=== PATIENT | female | born 1975 | race Caucasian/White ===

== ENCOUNTER 2020-12-31 10:20 | Emergency (ER) | payer SELFPAY ==
[~2020-12-31] VITALS: Ht 166 cm; Wt 64.5 kg
--- NOTE | 2020-12-31 10:53 | ED General ---
General Chief Complaint: Suicidal Ideation Risk Stated Complaint: SUICIDAL IDEATION Source of Information: Patient History of Present Illness Date Seen by Provider: December 31, 2020 Time Seen by Provider: 10:40 Initial Comments Patient is a 45-year-old female who presents with suicidal ideation. Patient states she is going through a contentious divorce that she is in the process of being served. She states last night she went to a hotel room with the intent of drinking 1/2 gallon of whiskey and overdosing on prescription muscle relaxants. Patient drink the alcohol but did not take the muscle relaxants out of fear of leaving her children alone. She states she has been suicidal for several months. She denies hallucinations delusions paranoia and homicidal ideation. She denies mental symptoms or complaints at this time. She is currently on her menstrual period. Timing/Duration: Other Severity: Moderate Associated Systoms: Other Allergies and Home Medications Allergies Coded Allergies: latex (Verified Allergy, Unknown, 12/31/20) Patient Home Medication List Home Medication List Reviewed: Yes Review of Systems Review of Systems Constitutional: see HPI EENTM: see HPI Respiratory: see HPI Cardiovascular: see HPI Gastrointestinal: see HPI Genitourinary: see HPI Musculoskeletal: see HPI Skin: see HPI Psychiatric/Neurological: See HPI Immunological/Allergic: see HPI All Other Systems Reviewed Negative Unless Noted: Yes Past Jnrjyrp-Itgkoo-Jpvrsc Hx Past Med/Social Hx: Reviewed Nursing Past Med/Soc Hx Patient Social History Alcohol Use: Occasionally Uses Smoking Status: Never a Smoker 2nd Hand Smoke Exposure: No Recent Hopitalizations: No Seasonal Allergies Seasonal Allergies: No Past Medical History Surgeries: Yes (Breast Augmentation) Breast Respiratory: No Cardiac: No Neurological: No Genitourinary: No Gastrointestinal: No Musculoskeletal: No Endocrine: No HEENT: No Cancer: No Psychosocial: No Nursing Suicide Risk Notes: Patient presents to the ED with c/o of sucidal ideation. The patient contacted [facility] crisis line. Michele from mental health reported that the patient had a plan to overdose last night. The patient stated she was going to take her son's bottle of flexeril and drink vodka. When asked what kept her from going through with it she stated, "I didn't want to leave my children with their father; He's a monster and a psychopath." Patient is currently going through a divorce and struggling with child custody issues. Integumentary: No Blood Disorders: No Physical Exam Vital Signs Vital Signs - First Documented 12/31/20 10:25 Temp 36.7 Pulse 97 Resp 16 B/P (MAP) 141/66 (91) Pulse Ox 100 O2 Delivery Room Air Capillary Refill : Height, Weight, BMI Height: '" Weight: lbs. oz. kg; BMI Method: General Appearance: Anxious Eyes: Bilateral Eye Normal Inspection, Bilateral Eye PERRL, Bilateral Eye EOMI HEENT: PERRL/EOMI, Normal ENT Inspection, Pharynx Normal Neck: Full Range of Motion, Non Tender, Supple Respiratory: Lungs Clear, Normal Breath Sounds Cardiovascular: Regular Rate, Rhythm Gastrointestinal: Soft Neurologic/Psychiatric: Alert, Oriented x3, Normal Mood/Affect Progress/Results/Core Measures Suspected Sepsis SIRS Temperature: Pulse: Respiratory Rate: Laboratory Tests 12/31/20 10:56: White Blood Count 11.4H Blood Pressure / Mean: Laboratory Tests 12/31/20 10:56: Creatinine 0.83, Platelet Count 363, Total Bilirubin 0.5 Results/Orders Lab Results Laboratory Tests Test 12/31/20 10:30 12/31/20 10:56 12/31/20 13:07 Range/Units Urine Opiates Screen NEGATIVE NEGATIVE Urine Oxycodone Screen NEGATIVE NEGATIVE Urine Methadone Screen NEGATIVE NEGATIVE Urine Propoxyphene Screen NEGATIVE NEGATIVE Urine Barbiturates Screen NEGATIVE NEGATIVE Ur Tricyclic Antidepressants Screen NEGATIVE NEGATIVE Urine Phencyclidine Screen NEGATIVE NEGATIVE Urine Amphetamines Screen NEGATIVE NEGATIVE Urine Methamphetamines Screen NEGATIVE NEGATIVE Urine Benzodiazepines Screen NEGATIVE NEGATIVE Urine Cocaine Screen NEGATIVE NEGATIVE Urine Cannabinoids Screen NEGATIVE NEGATIVE White Blood Count 11.4 H 4.3-11.0 10^3/uL Red Blood Count 4.64 4.35-5.85 10^6/uL Hemoglobin 13.9 11.5-16.0 G/DL Hematocrit 42 35-52 % Mean Corpuscular Volume 90 80-99 FL Mean Corpuscular Hemoglobin 30 25-34 PG Mean Corpuscular Hemoglobin Concent 33 32-36 G/DL Red Cell Distribution Width 12.5 10.0-14.5 % Platelet Count 363 130-400 10^3/uL Mean Platelet Volume 9.8 7.4-10.4 FL Immature Granulocyte % (Auto) 0 % Neutrophils (%) (Auto) 76 H 42-75 % Lymphocytes (%) (Auto) 16 12-44 % Monocytes (%) (Auto) 6 0-12 % Eosinophils (%) (Auto) 1 0-10 % Basophils (%) (Auto) 0 0-10 % Neutrophils # (Auto) 8.7 H 1.8-7.8 X 10^3 Lymphocytes # (Auto) 1.9 1.0-4.0 X 10^3 Monocytes # (Auto) 0.7 0.0-1.0 X 10^3 Eosinophils # (Auto) 0.1 0.0-0.3 10^3/uL Basophils # (Auto) 0.0 0.0-0.1 10^3/uL Immature Granulocyte # (Auto) 0.0 0.0-0.1 10^3/uL Percent Immature Platelet Fraction 2.6 0.0-7.6 % Sodium Level 143 135-145 MMOL/L Potassium Level 3.9 3.6-5.0 MMOL/L Chloride Level 106 98-107 MMOL/L Carbon Dioxide Level 24 21-32 MMOL/L Anion Gap 13 5-14 MMOL/L Blood Urea Nitrogen 13 7-18 MG/DL Creatinine 0.83 0.60-1.30 MG/DL Estimat Glomerular Filtration Rate > 60 BUN/Creatinine Ratio 16 Glucose Level 121 H 70-105 MG/DL Calcium Level 9.7 8.5-10.1 MG/DL Corrected Calcium 9.5 8.5-10.1 MG/DL Total Bilirubin 0.5 0.1-1.0 MG/DL Aspartate Amino Transf (AST/SGOT) 16 5-34 U/L Alanine Aminotransferase (ALT/SGPT) 19 0-55 U/L Alkaline Phosphatase 46 40-136 U/L Total Protein 6.7 6.4-8.2 GM/DL Albumin 4.3 3.2-4.5 GM/DL Serum Alcohol < 10 <10 MG/DL SARS-CoV-2 RNA (RT-PCR) Not Detected Not Detecte My Orders Julien - NED DARBY DO Cbc With Automated Diff (12/31/20 10:44) Comprehensive Metabolic Panel (12/31/20 10:44) Alcohol (12/31/20 10:44) Drug Screen Stat (Urine) (12/31/20 10:44) Ekg-Prn For Chest Pain Or Rhyt (12/31/20 10:44) Urine Bedside (12/31/20 10:45) Covid 19 Inhouse Test (12/31/20 12:38) Vital Signs/I&O 12/31/20 12/31/20 10:25 19:03 Temp 36.7 36.5 Pulse 97 87 Resp 16 16 B/P (MAP) 141/66 (91) 140/65 (91) Pulse Ox 100 100 O2 Delivery Room Air Capillary Refill : Departure Communication (Admissions) She is medically cleared and screened. She will require admission to psychiatric hospital for treatment of acute mood disorder and substance abuse. Impression Primary Impression: Mood disorder Additional Impression: Substance abuse Disposition: XFER SHT-TRM HOSP Condition: Stable Departure-Patient Inst. Referrals: NO,LOCAL PHYSICIAN (PCP/Family) Primary Care Physician Patient Instructions: OUTPT MENTAL HEALTH SERVICES NED DARBY DO December 31, 2020 10:52
[2020-12-31 11:03] LABS: AMPHETAMINE SCREEN, URINE NEGATIVE (NEGATIVE); BARBITURATE SCREEN URINE NEGATIVE (NEGATIVE); BENZODIAZEPINES SCREEN URINE NEGATIVE (NEGATIVE); CANNABINOID SCREEN, URINE NEGATIVE (NEGATIVE); COCAINE SCREEN URINE NEGATIVE (NEGATIVE); METHADONE STAT NEGATIVE (NEGATIVE); METHAMPHETAMINE SCREEN URINE S NEGATIVE (NEGATIVE); OPIATE SCREEN URINE NEGATIVE (NEGATIVE); OXYCODONE STAT NEGATIVE (NEGATIVE); PROPOXYPHENE STAT NEGATIVE (NEGATIVE); TRICYCLIC ANTIDEPRESSANTS SCRE NEGATIVE (NEGATIVE)
[2020-12-31 11:16] LABS: BASOPHILS % (AUTO) 0 % (0-10); EOSINOPHILS % (AUTO) 1 % (0-10); HEMATOCRIT 42 % (35-52); HEMOGLOBIN 13.9 G/DL (11.5-16.0); LYMPHOCYTES % (AUTO) 16 % (12-44); MEAN CORPUSCULAR HEMOGLOBIN 30 PG (25-34); MEAN CORPUSCULAR HGB CONC 33 G/DL (32-36); MEAN CORPUSCULAR VOLUME 90 FL (80-99); MEAN PLATELET VOLUME 9.8 FL (7.4-10.4); MONOCYTES % (AUTO) 6 % (0-12); NEUTROPHILS # (AUTO) 8.7 X 10^3 (1.8-7.8); NEUTROPHILS % (AUTO) 76 % (42-75); PLATELET COUNT 363 10^3/uL (130-400); WHITE BLOOD COUNT 11.4 10^3/uL (4.3-11.0)
[2020-12-31 11:17] LABS: EOSINOPHILS # (AUTO) 0.1 10^3/uL (0.0-0.3); LYMPHOCYTES # (AUTO) 1.9 X 10^3 (1.0-4.0); MONOCYTES # (AUTO) 0.7 X 10^3 (0.0-1.0)
[2020-12-31 11:37] LABS: BUN/CREATININE RATIO 16; CARBON DIOXIDE 24 MMOL/L (21-32); CHLORIDE 106 MMOL/L (98-107); CREATININE SERUM 0.83 MG/DL (0.60-1.30); GFR ESTIMATED > 60; GLUCOSE 121 MG/DL (70-105); POTASSIUM 3.9 MMOL/L (3.6-5.0); SODIUM 143 MMOL/L (135-145)
[2020-12-31 11:38] LABS: ALANINE AMINOTRANSFERASE 19 U/L (0-55); ALBUMIN 4.3 GM/DL (3.2-4.5); ALKALINE PHOSPHATASE 46 U/L (40-136); BILIRUBIN,TOTAL 0.5 MG/DL (0.1-1.0); CALCIUM 9.7 MG/DL (8.5-10.1); TOTAL PROTEIN 6.7 GM/DL (6.4-8.2)
[2020-12-31 19:03] VITALS: BP 140/65
== END 2020-12-31 19:03 ==
LOC: EDUNIT# 10:20 → ER FS 10:23
DX: F39 Unspecified mood [affective] disorder (principal); F19.10 Other psychoactive substance abuse, uncomplicated; Z91.040 Latex allergy status; Z20.822 Contact with and (suspected) exposure to COVID-19
CPT/HCPCS: 36415; 80053; 80306; 85025; 87636; 99284; G0480; 80320

== ENCOUNTER 2022-09-13 20:26 | Observation (INO) | payer MEDICAID ==
[~2022-09-13] VITALS: Ht 165.1 cm; Wt 73.0 kg
[2022-09-13] MEDS ORDERED: HEParin 1000 UNIT/ML (10ML VIAL) FOR BOLUS ONE ×2 (20:44→20:57)
--- NOTE | 2022-09-13 20:46 | ED Chest Pain ---
General Stated Complaint: STEMI Source: patient Exam Limitations: no limitations History of Present Illness Date Seen by Provider: Sep 13, 2022 Time Seen by Provider: 20:28 Initial Comments Patient is a 47-year-old female negative past medical history taking an aisl-wni-izrjnkq supplemental thyroid medication who presents to the emergency room from [facility] ambulance with chief complaint substernal chest pressure and pain radiating into her neck and bilateral upper extremities to the elbows. She is nauseous and a little short of breath. No diaphoresis. EMS called STEMI on their way in. Blood pressure initially 140s, not hypoxic. Patient denies any recent illnesses. She did have some chest pain a couple weeks ago but it went a way. Family history pertinent for grandfather with heart disease. She has no known hypertension hypercholesterolemia or diabetes. She is a non-smoker. Nondrinker. No street drugs. Currently rating her pain at a 5 at its worst at presentation it was a "9". Initial EKG at presentation shows normal sinus rhythm with small Q waves inferiorly a hint of ST elevation in lead III and aVF. This is compared to the EMS twelve-lead which did show distinct elevation in 2 3 and aVF with reciprocal changes in 1 and aVL also some ST elevation noted in leads V4 5 and six 1 mm. Shortly after I left the room the patient started complaining of "feeling funny, second EKG obtained and shows a junctional tachycardia at [address] segment elevation Timing/Duration: 1/2 hour Severity/Quality: severe, aching Location: substernal Radiation: jaw, arms Activities at Onset: other (in [facility]) Prior CP/Workup: no prior chest pain, no prior cardiac workup Modifying Factors: improves with nitroglycerin (x1 per EMS) ASA po MEDICAL RECORDS CLERK: Yes NTG SL MEDICAL RECORDS CLERK: Yes Associated Symptoms: nausea/vomiting; No shortness of breath Allergies and Home Medications Allergies Coded Allergies: latex (Verified Allergy, Unknown, 12/31/20) levofloxacin (Verified Allergy, Unknown, 09/13/22) Patient Home Medication List Home Medication List Reviewed: Yes Aspirin (Aspirin EC) 81 Mg Tablet.dr, 81 MG PO DAILY Prescribed by: YANDY OLSEN on 09/14/22 162 Atorvastatin Calcium (Lipitor) 10 Mg Tablet, 10 MG PO DAILY Prescribed by: YANDY OLSEN on 09/14/22 1624 [Thyromin Yng Lving] , 1 EA PO BID, (Reported) Entered as Reported by: JOSIAS SAAVEDRA on 09/14/22 1043 Last Action: Reviewed Review of Systems Review of Systems Constitutional: see HPI EENTM: No Symptoms Reported Respiratory: Shortness of Air Cardiovascular: Chest Pain Gastrointestinal: Nausea Genitourinary: No Symptoms Reported Musculoskeletal: no symptoms reported Skin: no symptoms reported Past Ftfxgpt-Rnruak-Gsxufk Hx Seasonal Allergies Seasonal Allergies: No Past Medical History Surgeries: Yes (Breast Augmentation) Breast Respiratory: No Cardiac: No Neurological: No Genitourinary: No Gastrointestinal: No Musculoskeletal: No Endocrine: No HEENT: No Cancer: No Psychosocial: No Integumentary: No Blood Disorders: No Physical Exam Vital Signs Vital Signs - First Documented 09/13/22 20:28 Temp 36.3 Pulse 92 Resp 22 B/P (MAP) 142/82 (102) Pulse Ox 97 O2 Delivery Room Air Capillary Refill : Height, Weight, BMI Height: '" Weight: lbs. oz. kg; 23.00 BMI Method: General Appearance: No Apparent Distress, WD/WN HEENT: PERRL/EOMI Neck: Normal Inspection Respiratory: Lungs Clear, Normal Breath Sounds, No Accessory Muscle Use, No Respiratory Distress Cardiovascular: Regular Rate, Rhythm, Normal Peripheral Pulses Gastrointestinal: Normal Bowel Sounds, Non Tender, Soft Extremity: Normal Capillary Refill, Normal Inspection, Normal Range of Motion, Non Tender, No Calf Tenderness, No Pedal Edema Neurologic/Psychiatric: Alert, Oriented x3, No Motor/Sensory Deficits, Normal Mood/Affect Skin: Normal Color, Warm/Dry Progress/Results/Core Measures Results/Orders Lab Results Laboratory Tests Test 09/13/22 20:35 Range/Units White Blood Count 12.0 H 4.3-11.0 10^3/uL Red Blood Count 4.40 3.80-5.11 10^6/uL Hemoglobin 13.1 11.5-16.0 g/dL Hematocrit 39 35-52 % Mean Corpuscular Volume 88 80-99 fL Mean Corpuscular Hemoglobin 30 25-34 pg Mean Corpuscular Hemoglobin Concent 34 32-36 g/dL Red Cell Distribution Width 12.3 10.0-14.5 % Platelet Count 368 130-400 10^3/uL Mean Platelet Volume 9.7 9.0-12.2 fL Immature Granulocyte % (Auto) 0 % Neutrophils (%) (Auto) 54 42-75 % Lymphocytes (%) (Auto) 38 12-44 % Monocytes (%) (Auto) 6 0-12 % Eosinophils (%) (Auto) 2 0-10 % Basophils (%) (Auto) 0 0-10 % Neutrophils # (Auto) 6.5 1.8-7.8 10^3/uL Lymphocytes # (Auto) 4.5 H 1.0-4.0 10^3/uL Monocytes # (Auto) 0.7 0.0-1.0 10^3/uL Eosinophils # (Auto) 0.2 0.0-0.3 10^3/uL Basophils # (Auto) 0.0 0.0-0.1 10^3/uL Immature Granulocyte # (Auto) 0.0 0.0-0.1 10^3/uL Prothrombin Time 12.6 12.2-14.7 SEC INR Comment 0.9 0.8-1.4 Activated Partial Thromboplast Time 26 24-35 SEC Sodium Level 141 135-145 MMOL/L Potassium Level 3.4 L 3.6-5.0 MMOL/L Chloride Level 106 98-107 MMOL/L Carbon Dioxide Level 21 21-32 MMOL/L Anion Gap 14 5-14 MMOL/L Blood Urea Nitrogen 17 7-18 MG/DL Creatinine 0.91 0.60-1.30 MG/DL Estimat Glomerular Filtration Rate 78 BUN/Creatinine Ratio 19 Glucose Level 130 H 70-105 MG/DL Calcium Level 9.6 8.5-10.1 MG/DL Corrected Calcium 9.4 8.5-10.1 MG/DL Magnesium Level 2.1 1.6-2.4 MG/DL Total Bilirubin 0.3 0.1-1.0 MG/DL Aspartate Amino Transf (AST/SGOT) 46 H 5-34 U/L Alanine Aminotransferase (ALT/SGPT) 77 H 0-55 U/L Alkaline Phosphatase 64 40-136 U/L Myoglobin 29.2 10.0-92.0 NG/ML Troponin I < 0.028 <0.028 NG/ML Total Protein 7.0 6.4-8.2 GM/DL Albumin 4.3 3.2-4.5 GM/DL My Orders Orders - PAT FERNANDEZ MD Cbc With Automated Diff (09/13/22 20:38) Magnesium (09/13/22 20:38) Chest 1 View, Ap/Pa Only (09/13/22 20:38) Ekg Tracing (09/13/22 20:38) Comprehensive Metabolic Panel (09/13/22 20:38) Myoglobin Serum (09/13/22 20:38) Protime With Inr (09/13/22 20:38) Partial Thromboplastin Time (09/13/22 20:38) O2 (09/13/22 20:38) Monitor-Rhythm Ecg Trace Only (09/13/22 20:38) Ed Iv/Invasive Line Start (09/13/22 20:38) Troponin I Charles (09/13/22 20:38) Heparin (Bolus Per Protocol) (Heparin (B (09/13/22 20:44) Vital Signs/I&O 09/13/22 20:28 Temp 36.3 Pulse 92 Resp 22 B/P (MAP) 142/82 (102) Pulse Ox 97 O2 Delivery Room Air Progress Progress Note : Time: 20:44 Progress Note Discussed with Dr Olsen, activate clinical lab assistant 0 5000u Heparin Initial ECG Impression Date: Sep 13, 2022 Initial ECG Impression Time: 20:34 Initial ECG Rate: 92 Initial ECG Rhythm: Normal Sinus Initial ECG Intervals AL 150 QRS [address] elevation 1mm inferior leads; depression aVL 1mm; no ectopy EKG : EKG Time: 20:38 Rate: 101 ECG Comparisson: Changed Comment junctional tachycardia with QRS 111; QTc 519 Departure Communication (Admissions) Time/Spoke to Admitting Phy: 20:[address] Olsen Impression Primary Impression: STEMI (ST elevation myocardial infarction) Qualified Codes: I21.3 - ST elevation (STEMI) myocardial infarction of unspecified site Disposition: ADMITTED INPATIENT Condition: Critical Admissions Decision to Admit Reason: Admit from ER (General) Decision to Admit/Date: Sep 13, 2022 Time/Decision to Admit Time: 20:46 Departure-Patient Inst. Referrals: NO,LOCAL PHYSICIAN (PCP/Family) Primary Care Physician Scripts Atorvastatin Calcium (Lipitor) 10 Mg Tablet 10 MG PO DAILY, #30 TAB 3 Refills Prov: YANDY OLSEN MD 09/14/22 Aspirin (Aspirin EC) 81 Mg Tablet. 81 MG PO DAILY, #100 TAB 4 Refills Prov: YANDY OLSEN MD 09/14/22 PAT FERNANDEZ MD Sep 13, 2022 20:46
[2022-09-13 20:50] LABS: BASOPHILS % (AUTO) 0 % (0-10); EOSINOPHILS # (AUTO) 0.2 10^3/uL (0.0-0.3); EOSINOPHILS % (AUTO) 2 % (0-10); HEMATOCRIT 39 % (35-52); HEMOGLOBIN 13.1 g/dL (11.5-16.0); LYMPHOCYTES # (AUTO) 4.5 10^3/uL (1.0-4.0); LYMPHOCYTES % (AUTO) 38 % (12-44); MEAN CORPUSCULAR HEMOGLOBIN 30 pg (25-34); MEAN CORPUSCULAR HGB CONC 34 g/dL (32-36); MEAN CORPUSCULAR VOLUME 88 fL (80-99); MEAN PLATELET VOLUME 9.7 fL (9.0-12.2); MONOCYTES # (AUTO) 0.7 10^3/uL (0.0-1.0); MONOCYTES % (AUTO) 6 % (0-12); NEUTROPHILS # (AUTO) 6.5 10^3/uL (1.8-7.8); NEUTROPHILS % (AUTO) 54 % (42-75); PLATELET COUNT 368 10^3/uL (130-400)
[2022-09-13] MEDS ORDERED: fentaNYL INJ 100 MCG/2 ML AMP ONE (20:57)
[2022-09-13] MEDS ORDERED: MIDAZOLAM 5 MG/5 ML (VERSED) VIAL ONE (20:57)
[2022-09-13] MEDS ORDERED: HEParin (CATH LAB) 2,000 ML IV ONE (20:58)
[2022-09-13] MEDS ORDERED: NITRO DRIP 25000 MCG/D5W 0 ML IV ONE (20:58)
[2022-09-13] MEDS ORDERED: NS IV 1000 ML 1,000 ML ONE (20:58)
[2022-09-13] MEDS ORDERED: LIDOCAINE 1% INJ 20 ML VIAL ONE (20:58)
[2022-09-13 21:01] LABS: ALBUMIN 4.3 GM/DL (3.2-4.5); POTASSIUM 3.4 MMOL/L (3.6-5.0)
[2022-09-13 21:02] LABS: CALCIUM 9.6 MG/DL (8.5-10.1); INR 0.9 (0.8-1.4); PROTHROMBIN TIME PATIENT 12.6 SEC (12.2-14.7)
[2022-09-13 21:05] LABS: BILIRUBIN,TOTAL 0.3 MG/DL (0.1-1.0)
[2022-09-13 21:07] LABS: CREATININE SERUM 0.91 MG/DL (0.60-1.30)
[2022-09-13] MEDS ORDERED: HEParin 1000 UNIT/ML (10ML VIAL) FOR BOLUS IV STA (21:07)
[2022-09-13 21:10] LABS: MAGNESIUM 2.1 MG/DL (1.6-2.4)
[2022-09-13 21:13] VITALS: BP 126/64
--- NOTE | 2022-09-13 21:16 | Cardiology History & Physical ---
HPI-Cardiology Cardiology Consultation Date of Consultation 09/13/22 Date of Admission Time Seen by Provider: 21:14 Indication: Chest pain HPI 47-year-old lady with family history of heart disease, had sudden onset of retrosternal chest pain radiating to the back and jaw associated with diaphoresis. EMS were called and she was noted to have ST elevation in the inferolateral leads. She was given aspirin and nitroglycerin, reporting improvement in the chest pain, still having minimal EKG changes and having multiple episodes of wide-complex tachycardia, no chest pain at this point PMH-Cardiology Seasonal Allergies Seasonal Allergies: No Surgeries Yes (Breast Augmentation) Respiratory No Cardiovascular No Neurological No Genitourinary No Gastrointestinal No Musculoskeletal No Endocrine No HEENT No Cancer No Psychosocial No Integumentary No Blood Transfusions No Social History Patient Social History Marrital Status: Employed/Student: employed Smoking: Never smoker Have you traveled recently?: No Alcohol Use?: No Family Hx Other Grandfather had multiple heart attack at age 86 ROS-Cardiology Review of Systems General: No Chills, No Night Sweats, No Fatigue, No Malaise, No Appetite HEENT: No Head Aches, No Visual Changes, No Eye Pain, No Ear Pain, No Dysphasia, No Sinus Congestion, No Post Nasal Drip, No Sore Throat Pulmonary: Dyspnea; No Cough, No Pleuritic Chest Pain Cardiovascular: Chest Pain; No: Palpitations, Orthopnea, Paroxysmal Noc. Dyspnea, Edema, Lt Headedness Gastrointestinal: No: Nausea, Vomiting, Abdominal Pain, Diarrhea, Constipation, Melena, Hematochezia Genitourinary: No Dysuria, No Frequency, No Incontinence, No Hematuria, No Retention Musculoskeletal: No: neck pain, shoulder pain, arm pain, back pain, hand pain, leg pain, foot pain Neurological: No: Weakness, Numbness, Incoordination, Change in speech, Confusion, Seizures Home Medications & Allergies Allergies: Coded Allergies: latex (Verified Allergy, Unknown, 12/31/20) levofloxacin (Verified Allergy, Unknown, 09/13/22) Home Medication List Reviewed: Yes Exam-Cardiology Vital Signs Vital Signs Date Time Temp Pulse Resp B/P (MAP) Pulse Ox O2 Delivery O2 Flow Rate FiO2 09/13/22 21:13 93 20 126/64 97 Room Air 09/13/22 20:28 36.3 Exam General Appearance: Alert, Oriented X3, Cooperative, No Acute Distress HEENT: Atraumatic, PERRLA Respiratory: Clear to Auscultation, Normal Air Movement Cardiovascular: Regular Rate, Normal S1, Normal S2, No Murmurs Abdominal: Normal Bowel Sounds, Soft, No Tenderness, No Hepatosplenomegaly, No Masses Extremities: No Clubbing, No Cyanosis, No Edema, Normal Pulses, No Tenderness/Swelling Skin: No Rashes, No Breakdown, No Significant Lesion Neuro: Normal Gait, Normal Speech, Strength at 5/5 X4 Ext, Normal Tone, Sensation Intact Psych/Mental Status: Mental Status NL, Mood NL Results Labs Labs Laboratory Tests 09/13/22 20:35: White Blood Count 12.0H, Red Blood Count 4.40, Hemoglobin 13.1, Hematocrit 39, Mean Corpuscular Volume 88, Mean Corpuscular Hemoglobin 30, Mean Corpuscular Hemoglobin Concent 34, Red Cell Distribution Width 12.3, Platelet Count 368, Mean Platelet Volume 9.7, Immature Granulocyte % (Auto) 0, Neutrophils (%) (Auto) 54, Lymphocytes (%) (Auto) 38, Monocytes (%) (Auto) 6, Eosinophils (%) (Auto) 2, Basophils (%) (Auto) 0, Neutrophils # (Auto) 6.5, Lymphocytes # (Auto) 4.5H, Monocytes # (Auto) 0.7, Eosinophils # (Auto) 0.2, Basophils # (Auto) 0.0, Immature Granulocyte # (Auto) 0.0, Prothrombin Time 12.6, INR Comment 0.9, Activated Partial Thromboplast Time 26, Sodium Level 141, Potassium Level 3.4L, Chloride Level 106, Carbon Dioxide Level 21, Anion Gap 14, Blood Urea Nitrogen 17, Creatinine 0.91, Estimat Glomerular Filtration Rate 78, BUN/Creatinine Ratio 19, Glucose Level 130H, Calcium Level 9.6, Corrected Calcium 9.4, Magnesium Level 2.1, Total Bilirubin 0.3, Aspartate Amino Transf (AST/SGOT) 46H, Alanine Aminotransferase (ALT/SGPT) 77H, Alkaline Phosphatase 64, Myoglobin 29.2, Troponin I < 0.028, Total Protein 7.0, Albumin 4.3 A/P-Cardiology Admission Diagnosis Acute ST elevation myocardial infarction Coronary artery disease Hypothyroidism Family history of atherosclerosis Admission Status: Observation Assessment/Plan Acute chest pain, ST elevation DC in the inferior lateral leads by EMS EKG, repeat EKG in the emergency room showed improvement. Suspicion of myocardial infarction Plan to proceed with emergency cardiac catheterization Coronary artery disease planning for cardiac catheterization Mild elevation in liver enzymes, continue to monitor Multiple episodes of wide-complex tachycardia. We will evaluate cardiac catheterization Hypothyroidism maintained on herbal supplement Strong family history of heart disease Clinical Quality Measures AMI/AHF: ASA po Prior to arrival: Yes YANDY OLSEN MD Sep 13, 2022 21:16
--- NOTE | 2022-09-13 21:17 | Cardiac Procedure Note-CS/ASA ---
Pre-Procedure Note Pre-Op Procedure Note Date of Available H&P: Sep 13, 2022 Date H&P Reviewed: Sep 13, 2022 Time H&P Reviewed: 21:17 History & Physical: H&P Reviewed, Patient Examed, No changes noted Pre-Operative Diagnosis: Acute myocardial infarction Conscious Sedation Pre-Proced Time 21:17 ASA Score 3 For ASA 3 and 4: Consider anesthesia and medical clearance. Also, for patients with a history of failed moderate sedation consider anesthesia. Airway Lungs Heart ASA score ASA 1: a normal healthy patient ASA 2: a patient with a mild systemic disease (mid diabetes, controlled hypertension, obesity ASA 3: a patient with a severe systemic disease that limits activity (angina, COPD, prior Myocardial infarction) ASA 4: a patient with an incapacitating disease that is a constant threat to life (CHF, renal failure) ASA 5: a moribund patient not expected to survive 24 hrs. (ruptured aneurysm) ASA 6: a declared brain- patient whose organs are being harvested. For emergent operations, add the letter E after the classification Mallampati Classification Grade 3 Sedation Plan Analgesia, Amnesia, Plan communicated to team members, Discussed options with patient/fam, Discussed risks with patient/fam The patient is an appropriate candidate to undergo the planned procedure, sedation, and anesthesia. The patient immediately re-assessed prior to indication. YANDY OLSEN MD Sep 13, 2022 21:17
--- NOTE | 2022-09-13 21:25 | Diagnostic Imaging Report ---
INDICATION: Chest pain. EXAMINATION: Chest, 09/13/2022. FINDINGS: Leads overlie the chest obscuring portions of the mid chest. No focal infiltrate, effusion or pneumothorax appreciated. Heart and pulmonary vasculature normal. IMPRESSION: No acute cardiopulmonary process. Dictated by: Dictated on workstation # [id number]
[2022-09-13] MEDS ORDERED: PATIENT MAY USE OWN MEDS, ALL PO SCH (21:45)
--- NOTE | 2022-09-13 21:46 | Cardiac Cath Report ---
Cardiac Cath Report Physician (s)/Manager Business Intelligence (s) Physician YANDY OLSEN MD Pre-Procedure Diagnosis Pre-Procedure Diagnosis: Acute myocardial infarction Post-Procedure Note Procedure Start Date: Sep 13, 2022 Name of Procedure: Left heart catheterization Aortic arch angiogram Findings/Procedure Note PROCEDURE NOTE: 47-year-old lady admitted with acute chest pain and EKG changes suggestive of acute myocardial infarction, emergency cardiac catheterization was advised. After explaining the procedure to the patient, all pros and cons were explained, all questions were answered. The patient signed the consent and then she was placed in the cardiac catheterization laboratory. Groin was prepped in SL fashi on local anesthesia was used. Sheath placed in the right femoral artery. Carlene' right and left catheter were used to access the coronary system, I used Carlene left 3.0 guide due to the small arch. Pigtail was used to access the left ventricular cavity. Left ventriculogram was done Aortic arch angiogram was done At the end of the procedure the sheath was removed. Closure device was deployed FINDINGS: Hemodynamics LV 106/12, end-diastolic pressure of 12 Aorta 113/65, mean of 85 ANATOMY: Left Main is free of obstructive disease Left Anterior Descending is small to moderate in size free of obstructive disease Left Circumflex is small to moderate in size free of obstructive disease Right Coronary Artery is large dominant artery slightly tortuous with no significant obstructive disease LV Gram was done showing normal left ventricular size and systolic function estimated ejection fraction 60% Aorta evaluation done with aortic arch angiogram showing normal aortic arch, no dissection or aneurysm, normal origin of the brachiocephalic artery left carotid and left subclavian arteries CONCLUSION: 1. Dominant right coronary artery with normal coronary system, no obstructive disease 2. Normal left ventricular size and systolic function estimate ejection fraction 60% 3. Normal aortic arch and great vessels of the neck DISCUSSION AND RECOMMENDATION: Evaluate for other causes for chest pain Anesthesia Type: Conscious Sedation Estimated blood loss (mL): 15 ml Contrast Amount: 38 ml Total Radiation Dose: 270 mGy Post-Procedure Diagnosis Post-operative diagnosis: Chest pain Coronary artery disease Elevated liver enzymes Wide-complex tachycardia YANDY OLSEN MD Sep 13, 2022 21:46
[2022-09-13] MEDS: meTOprolol TARTRATE 25 MG (LOPRESSOR) TABLET PO SCH (23:01)
[2022-09-13] MEDS: PANTOPRAZOLE 40 MG (PROTONIX) TAB PO SCH (23:01)
[2022-09-13] MEDS: NS IV 1000 ML 1,000 ML IV SCH (23:01)
[2022-09-14 05:48] LABS: HEMATOCRIT 37 % (35-52); HEMOGLOBIN 12.5 g/dL (11.5-16.0); MEAN CORPUSCULAR HEMOGLOBIN 30 pg (25-34); MEAN CORPUSCULAR HGB CONC 34 g/dL (32-36); MEAN CORPUSCULAR VOLUME 89 fL (80-99); MEAN PLATELET VOLUME 9.8 fL (9.0-12.2); PLATELET COUNT 324 10^3/uL (130-400); WHITE BLOOD COUNT 11.1 10^3/uL (4.3-11.0)
[2022-09-14 06:06] LABS: POTASSIUM 3.7 MMOL/L (3.6-5.0)
[2022-09-14 06:07] LABS: ALBUMIN 3.6 GM/DL (3.2-4.5)
[2022-09-14 06:08] LABS: CALCIUM 8.7 MG/DL (8.5-10.1)
[2022-09-14 06:09] LABS: TOTAL PROTEIN 6.3 GM/DL (6.4-8.2)
[2022-09-14 06:11] LABS: BILIRUBIN,TOTAL 0.2 MG/DL (0.1-1.0)
[2022-09-14 06:13] LABS: CREATININE SERUM 0.72 MG/DL (0.60-1.30)
[2022-09-14] MEDS: NS IV 1000 ML 1,000 ML IV SCH (07:45)
--- NOTE | 2022-09-14 08:31 | Cardiology Progress Note ---
Subjective Date Seen by Provider: Sep 14, 2022 Time Seen by Provider: 08:29 Subjective/Events-last exam Patient was seen at bedside, still having mild chest pain. Review of Systems General: No Chills, No Night Sweats, No Fatigue, No Malaise, No Appetite, No Other HEENT: No Head Aches, No Visual Changes, No Eye Pain, No Ear Pain, No Dysphasia, No Sinus Congestion, No Post Nasal Drip, No Sore Throat, No Other Pulmonary: No Dyspnea, No Cough, No Pleuritic Chest Pain, No Other Cardiovascular: Chest Pain; No: Palpitations, Orthopnea, Paroxysmal Noc. Dyspnea, Edema, Lt Headedness, Other Objective-Cardiology Exam Last Set of Vital Signs Vital Signs 09/13/22 09/14/22 09/14/22 22:00 11:19 15:00 Temp 36.4 Resp 20 B/P (MAP) 110/54 (72) I&O Intake and Output 09/14/22 00:00 Daily Weight Change No General: Alert, Oriented X3, Cooperative, No Acute Distress HEENT: Atraumatic, PERRLA Neck: Supple, No JVD Lungs: Clear to Auscultation, Normal Air Movement Heart: Regular Rate, Normal S1, Normal S2, No Murmurs Abdomen: Normal Bowel Sounds, Soft, No Tenderness, No Hepatosplenomegaly, No Masses Extremities: No Clubbing, No Cyanosis, No Edema, Normal Pulses, No Tenderness/Swelling Skin: No Rashes, No Breakdown, No Significant Lesion Neuro: Normal Gait, Normal Speech, Strength at 5/5 X4 Ext, Normal Tone, Sensation Intact Psych/Mental Status: Mental Status NL, Mood NL Results Lab Laboratory Tests 09/13/22 20:35 09/14/22 05:37 A/P-Cardiology Admission Diagnosis Acute non-ST elevation myocardial infarction Coronary artery disease Hypothyroidism Family history of atherosclerosis Assessment/Plan Acute chest pain, ST elevation RI in the inferior lateral leads by EMS EKG, repeat EKG in the emergency room showed improvement. Troponin elevation was noted on the repeat. EKG not showing acute changes Cardiac catheterization done showing minimal coronary artery disease, has small left coronary system, probably underlying coronary spasm and endothelial dysfunction Non-ST elevation myocardial infarction Coronary artery disease, cardiac catheterization carried out on September 13, 2022 Small left coronary system with no significant obstructive disease, large dominant right coronary system with mild disease nonobstructive disease, normal LV size and function, ejection fraction 60%, normal aortic arch Starting on aspirin and monitor Mild elevation in liver enzymes, I will consult hospitalist Multiple episodes of wide-complex tachycardia. Appears to be sinus tachycardia with intraventricular conduction delay Started on low-dose beta-blockers and evaluate tolerance and response Hypothyroidism maintained on herbal supplement TSH is normal Strong family history of heart disease Patient refused BB, Ca channels blockers will start aspirin, lipitor Evalute US of liver Follow up as outpatient YANDY OLSEN MD Sep 14, 2022 08:31
[2022-09-14] MEDS ORDERED: amLODIPine 2.5MG (NORVASC) TAB PO SCH (09:00)
[2022-09-14] MEDS: meTOprolol TARTRATE 25 MG (LOPRESSOR) TABLET PO SCH (09:00)
[2022-09-14] MEDS ORDERED: ASPIRIN E.C. 81 MG (ECOTRIN) TAB PO SCH (09:00)
[2022-09-14] MEDS: PANTOPRAZOLE 40 MG (PROTONIX) TAB PO SCH (09:43)
[2022-09-14] MEDS ORDERED: [UNRECOGNIZED DRUG - OTHER] PO (10:43)
--- NOTE | 2022-09-14 10:56 | Tele-ICU Progress Note ---
Progress Note Video assessment done , Hemodynamically stable Available charting reviewed, discussed with RN NO TELE-ICU CONSULT REQUESTED CONTINUE TO MONITOR PER USUAL TELE-ICU PROTOCOL No need for Tele-ICU interventions Plans as delineated by bedside physicians / consultants Focused Exam Height, Weight, BMI Height: '" Weight: lbs. oz. kg; 26.78 BMI Method: TAMMI COSTELLO MD Sep 14, 2022 10:56
[2022-09-14] MEDS ORDERED: ASPI-1238 PO (16:22)
--- NOTE | 2022-09-14 16:23 | Discharge Inst-Post CATH ---
Discharge Inst-CATH/EP Problems Reviewed?: Yes Post Cardiac Cath/EP D/C Inst Follow Up/Plan Appointment with Dr Higuera tomorrow Appointment with Dr Ford in 2 weeks <b>CARDIAC CATH/EP PROCEDURE DISCHARGE INSTRUCTIONS</b> ACTIVITY * Go Home directly and rest. * Limit activity of the leg (or wrist if it was used) for 7 days including aerobics, swimming, jogging, bicycling, etc. * Restrict stair-climbing for 7 days if possible, if not, climb up with your non-cath leg, then bring together on the same step. * Avoid lifting, pushing, pulling or excessive movement of the affected extremity for 7 days. * Customary sexual activity may be resumed after 2 days-use caution not to use a position that strains or causes pain to the affected extremity. * No driving for 24 hours. * NO SMOKING. * Avoid straining for bowel movements for 7 days. * Gentle walking on level ground is allowed. * Returning to work will depend on the type of procedure and the results. Your doctor will discuss this with you. CALL YOUR DOCTOR FOR ANY OF THE FOLLOWING: *If bleeding from the puncture site occurs- Apply gentle pressure to site with clean cloth and call your doctor or EMS. * If a knot or lump forms under the skin, increases in size, or causes pain. * If bruising appears to be worsening or moving further down your leg instead of disappearing. * Temperature above 101 F. CARE OF YOUR GROIN INCISION; * Bruising or purple discoloration of the skin near the puncture site is common. * You may shower only, no bathtub bathing for 5 days. Be careful to avoid slipping as your leg may feel stiff. * If a closure device was used on your femoral artery, please see the attached guide regarding care of the device and your leg. * Leave dressing on FOR 24 hours. CARE OF YOUR WRIST INCISION; * Bruising or purple discoloration of the skin near the puncture site is common. * You may shower. * DO NOT submerge wrist. * Leave dressing on FOR 24 hours. YANDY FORD MD Sep 14, 2022 16:23
[2022-09-14] MEDS ORDERED: ATOR10TA PO (16:24)
--- NOTE | 2022-09-14 16:24 | Clinic Account Progress/Dx ---
Clinic Account Progress/Dx DIAGNOSIS: Date Seen by Provider: Sep 14, 2022 Time Seen by Provider: 16:23 NSTMI CAD SVT Hyperlipidemia YANDY OLSEN MD Sep 14, 2022 16:24
--- NOTE | 2022-09-14 16:24 | Diagnostic Imaging Report ---
PROCEDURE: US Abdomen, limited. TECHNIQUE: Multiple realtime grayscale images were obtained over the abdomen in various projections. INDICATION: Epigastric pain. FINDINGS: Liver parenchyma diffusely is echodense in keeping with its fatty infiltration. There are some areas of a relative fatty sparing adjacent to the gallbladder are multiple stones in the gallbladder is lumen, its nondilated, its wall non-thickened. The Baires sign reportedly negative. There is no intra or extrahepatic bile duct dilatation. The unobstructed right kidney is normal in size with an echogenic focus measuring 9 mm at its mid pole suspicious for nonobstructing calcification. No solid or cystic renal mass. Portal vein patent and showed hepatopetal directional flow. IMPRESSION: 1. Fatty infiltration of the liver and cholelithiasis. 2. Probable nonobstructing right renal calculus. Dictated by: Dictated on workstation # [id number]
--- NOTE | 2022-09-14 18:22 | Consultation - Hospitalist ---
HPI History of Present Illness: HPI/Chief Complaint Pt is a 47yoCF with a PMH of hypothyroidism who presented to the ER last night due to crushing chest pain.She was at a local [employer]into service when she developed crushing pain with diaphoresis and SOB. EMS was summoned and gave her ASA and nitro which improved her pain. She states by the time she arrived in the quality assurance qa lab analyst her symptoms were nearly resolved. She wad admitted to cardiology services due to ST elevation on EKG and taken urgently to the quality assurance qa lab analyst. She was found to have clean coronaries though. Labs have found and elevated AST/ALT. I am consulted of rmedical management. She reports that her mom and aunt both have had chronically elevated liver enzymes without an etiology being found. She reports she still has her gallbladder and will occasionally get "gallbladder attacks" that she treats with apple cider vinegar. She last had one about 1 year ago Source: patient Date Seen 09/14/22 Attending Physician No,Local Physician PCP Admitting Physician: Chester Ford MD Attending Physician: Chester Ford MD Referring Physician Date of Admission Sep 13, 2022 at 22:22 Home Medications & Allergies Home Medications Reviewed patient Home Medication Reconciliation performed by pharmacy medication reconciliations senior radiation protection technician and/or nursing. Patients Allergies have been reviewed. Allergies Allergies Coded Allergies latex (Verified Allergy, Unknown, 12/31/20) levofloxacin (Verified Allergy, Unknown, 09/13/22) Past Ykyuvxb-Aypkhq-Bljxin Hx Patient Social History Marrital Status: Employed/Student: employed Tobacco Use?: No Smoking Status: Never a Smoker Smokeless Tobacco Frequency: Never a User Use of E-Cig and/or Vaping dev: No Use of E-Cig and/or Vaping Mike: Never a User Substance use?: No Alcohol Use?: Yes Alcohol Frequency: Rarely Pt feels they are or have been: No Immunizations Up To Date First/Initial COVID19 Vaccinat: NONE Second COVID19 Vaccination Korey: NONE Tetanus Booster (TDap): Unknown Seasonal Allergies Seasonal Allergies: No Current Status status: No status: No Advance Directives: No Communicates: Verbally Primary Language: Slovenian Preferred Spoken Language: Slovenian Is interpretation needed?: No Sensory deficits: Vision impairment Implanted or Applied Medical D: None Past Medical History Surgeries: Breast Blood Disorders: No Review of Systems Constitutional: see HPI Physical Exam Physical Exam Vital Signs Vital Signs - First Documented 09/13/22 20:28 Temp 36.3 Pulse 92 Resp 22 B/P (MAP) 142/82 (102) Pulse Ox 97 O2 Delivery Room Air Capillary Refill : Less Than 3 Seconds Height, Weight, BMI Height: '" Weight: lbs. oz. kg; 26.78 BMI Method: General Appearance: No Apparent Distress, WD/WN HEENT: PERRL/EOMI, Moist Mucous Membranes Respiratory: Lungs Clear, No Accessory Muscle Use, No Respiratory Distress Cardiovascular: Regular Rate, Rhythm, No Murmur Gastrointestinal: Normal Bowel Sounds, Non Tender, Soft; No Distended, No Guarding Neurologic/Psychiatric: Alert, Oriented x3 Results Results/Procedures Labs Patient resulted labs reviewed. Imaging: Reviewed Imaging Report Imaging [facility], [place] NAME: VAISHALI BOOKER Sherie [facility] REC#: [id number] PT STATUS: ADM Jv : 1975 PHYSICIAN: SHEBA CUELLO MD ADMIT DATE: 09/13/22/ICU Signed Date of Exam:09/14/22 US ABDOMEN LIMITED [id number] PROCEDURE: US Abdomen, limited. TECHNIQUE: Multiple realtime grayscale images were obtained over the abdomen in various projections. INDICATION: Epigastric pain. FINDINGS: Liver parenchyma diffusely is echodense in keeping with its fatty infiltration. There are some areas of a relative fatty sparing adjacent to the gallbladder are multiple stones in the gallbladder is lumen, its nondilated, its wall non-thickened. The Baires sign reportedly negative. There is no intra or extrahepatic bile duct dilatation. The unobstructed right kidney is normal in size with an echogenic focus measuring 9 mm at its mid pole suspicious for nonobstructing calcification. No solid or cystic renal mass. Portal vein patent and showed hepatopetal directional flow. IMPRESSION: 1. Fatty infiltration of the liver and cholelithiasis. 2. Probable nonobstructing right renal calculus. Dictated by: Dictated on workstation # [id number] Dict: 09/14/22 1620 Trans: 09/14/222 CV [id number] Interpreted by: HUGH VERDIN Electronically signed by: HUGH VERDIN 09/14/227 Assessment/Plan Assessment and Plan Assess & Plan/Chief Complaint Transaminitis AST and ALT minimally elevated Usg ordered patient reports history of "gallbladder attacks" abdomen not acute, will need outpatient follow up reviewed usg- asymptomatic cholelithiasis noted- i attempted to call Dr Zuniga who pt plans to establish with (has appt with her TONGUE LINING STITCHER) and update, will forward report to her Also on thyroid supplement- unsure if contributing Angina with ST change ?Vasospastic angina Clean cath Management per primary Clinical Quality Measures AMI/AHF: ASA po Prior to arrival: Yes Copy Copies To 1: AUSTEN ZUNIGA MD, KATELYN M MD Sep 14, 2022 18:22
== END 2022-09-14 18:05 | disposition home or self-care (01) ==
LOC: EDUNIT# 20:26 → ER 20:27 → CATH 20:51 → ICU 22:22
PROVIDERS: ADMIT Internal Medicine Cardiovascular Disease; ATTEND Internal Medicine Cardiovascular Disease
DX: I21.4 Non-ST elevation (NSTEMI) myocardial infarction (principal); I25.10 Atherosclerotic heart disease of native coronary artery without angina pectoris; E78.5 Hyperlipidemia, unspecified; I47.1 Supraventricular tachycardia; R74.01 Elevation of levels of liver transaminase levels; E03.9 Hypothyroidism, unspecified; Z28.310 Unvaccinated for COVID-19; Z79.82 Long term (current) use of aspirin; Z79.899 Other long term (current) drug therapy
CPT/HCPCS: 36221; 71045; 76705; 80053 ×2; 80061; 83735; 83874; 84443; 84484 ×2; 85025; 85027; 85347; 85610; 85730; 87081; 93005; 93458; 99283; C1760; C1887; C1894; C8929; G0378; 36415; 93306